=== PATIENT | female | born 1990 | race American Indian/Alaskan Native ===

== ENCOUNTER 2017-07-08 03:23 | Emergency (ER) | payer SELFPAY ==
[2017-07-08 04:09] VITALS: BP 103/54
--- NOTE | 2017-07-08 04:44 | XRay Report ---
FINAL REPORT EXAM: XR CHEST ROUTINE 2V HISTORY: SOB/DANISH TECHNIQUE: PA and lateral chest radiographs PRIORS: None. FINDINGS: No mediastinal shift. Cardiac silhouette is not enlarged. No pneumothorax, effusion, or focal pulmonary opacity. No acute skeletal finding. IMPRESSION: No focal pulmonary opacity.
[2017-07-08] MEDS ORDERED: DUONEB *Not for PRN Use IH ONE (05:07)
--- NOTE | 2017-07-08 05:12 | Emergency Department Report ---
ED Asthma HPI - General Chief Complaint: Adult Asthma Stated Complaint: DANISH/SOB Time Seen by Provider: 07/08/17 05:07 Source: patient Mode of arrival: Ambulatory Limitations: No Limitations - History of Present Illness Initial Comments: 27-year-old -[place] female with a past medical history of asthma comes in today complaining of shortness of breath and DANISH 1 week. Patient poor she' s been using her inhaler but ran out last night. Patient came by EMS and was given Solu-Medrol and albuterol treatment prior to arrival. Patient denies any fever chills no nausea no vomiting she denies any nasal congestion or sore throat Raynaud's admits to wheezing and coughing. Patient reports she has not had an asthma attack like this in a year. Patient has no primary care provider. Patient has allergy to red dye. MD Complaint: "asthma attack", wheezing -: week(s) (1) Severity: similar to prior Context: ran out of meds Associated Symptoms: other (cough) Treatments Prior to Arrival: inhaled bronchodilator, IV steroid - Related Data Current Asthma Therapy: inhaled bronchodilator Previous Rx's Medication Instructions Recorded Last Taken Type ALBUTEROL Inhaler [Proair] 2 puff IH QID PRN #1 inhalation 07/08/17 Unknown Rx ALBUTEROL NEB's [Proventil 0.083% 2.5 mg IH TID PRN #120 nebu 07/08/17 Unknown Rx NEBS] Prednisone [predniSONE 5 mg (6-Day 5 mg PO .TAPER #1 tab.ds.pk 07/08/17 Unknown Rx Pack, 21 Tabs)] Allergies Allergy/AdvReac Type Severity Reaction Status Date / Time red dye Allergy Unknown Verified 01/02/13 20:54 ED Review of Systems ROS: Stated complaint: DANISH/SOB Other details as noted in HPI Constitutional: denies: chills, fever Eyes: denies: eye pain, eye discharge, vision change ENT: denies: ear pain, throat pain Respiratory: cough, shortness of breath, SOB with exertion, wheezing Cardiovascular: denies: chest pain, palpitations Endocrine: no symptoms reported Gastrointestinal: denies: abdominal pain, nausea, diarrhea Genitourinary: denies: urgency, dysuria, discharge Musculoskeletal: denies: back pain, joint swelling, arthralgia Skin: denies: rash, lesions Neurological: denies: headache, weakness, paresthesias Psychiatric: denies: anxiety, depression Hematological/Lymphatic: denies: easy bleeding, easy bruising ED Past Medical Hx - Past Medical History Previous Medical History?: Yes Hx Seizures: Yes Hx Psychiatric Treatment: Yes (depression) Hx Asthma: Yes Additional medical history: HYPERTHYROID,PANIC ATTACK - Surgical History Past Surgical History?: Yes Additional Surgical History: Caesarean 2X - Social History Smoking Status: Never Smoker Substance Use Type: None - Medications Home Medications: Home Medications Medication Instructions Recorded Confirmed Last Taken Type ALBUTEROL Inhaler [Proair] 2 puff IH QID PRN #1 inhalation 07/08/17 Unknown Rx ALBUTEROL NEB's [Proventil 0.083% 2.5 mg IH TID PRN #120 nebu 07/08/17 Unknown Rx NEBS] Prednisone [predniSONE 5 mg (6-Day 5 mg PO .TAPER #1 tab.ds.pk 07/08/17 Unknown Rx Pack, 21 Tabs)] ED Physical Exam - General Limitations: No Limitations General appearance: alert, in no apparent distress - Head Head exam: Present: atraumatic, normocephalic - Eye Eye exam: Present: normal appearance - ENT ENT exam: Present: mucous membranes moist - Neck Neck exam: Present: normal inspection - Respiratory Respiratory exam: Present: wheezes, rhonchi - Cardiovascular Cardiovascular Exam: Present: regular rate, normal rhythm. Absent: systolic murmur, diastolic murmur, rubs, gallop - GI/Abdominal GI/Abdominal exam: Present: soft, normal bowel sounds - Extremities Exam Extremities exam: Present: normal inspection - Back Exam Back exam: Present: normal inspection - Neurological Exam Neurological exam: Present: alert, oriented X3 - Psychiatric Psychiatric exam: Present: normal affect, normal mood - Skin Skin exam: Present: warm, dry, intact, normal color. Absent: rash ED Course Vital Signs 07/08/17 03:57 Temperature 98.5 F Pulse Rate 91 H Respiratory 18 Rate Blood Pressure 103/54 O2 Sat by Pulse 95 Oximetry - Reevaluation(s) Reevaluation #1: 07/08/17 05:49 Patient reports she feels much better after having the DuoNeb. ED Medical Decision Making - Radiology Data Radiology results: report reviewed, image reviewed FINAL REPORT EXAM: XR CHEST ROUTINE 2V HISTORY: SOB/DANISH TECHNIQUE: PA and lateral chest radiographs PRIORS: None. FINDINGS: No mediastinal shift. Cardiac silhouette is not enlarged. No pneumothorax, effusion, or focal pulmonary opacity. No acute skeletal finding. IMPRESSION: No focal pulmonary opacity. Transcribed By: MB Dictated By: ADDIE MCKEON MD Electronically Authenticated By: ADDIE MCKEON MD Signed Date/Time: 07/08/17438 DD/ 8 TD/TT: 07/08/17438 - Medical Decision Making Patient has been evaluated by this provider fast track. Patient had Solu- Medrol and albuterol treatment prior to arrival by EMS. We will order patient a DuoNeb. Patient's had a chest x-ray which shows no pulmonary opacities. We would discharge patient home on albuterol inhaler as well as Medrol Dosepak of steroids. We will refer patient to primary care. Patient verbalized understanding Critical care attestation.: If time is entered above; I have spent that time in minutes in the direct care of this critically ill patient, excluding procedure time. ED Disposition Clinical Impression: Asthma attack Qualifiers: Asthma severity: unspecified severity Asthma persistence: unspecified Qualified Code(s): J45.901 - Unspecified asthma with (acute) exacerbation Disposition: DC-01 TO HOME OR SELFCARE Is pt being admited?: No Does the pt Need Aspirin: No Condition: Stable Additional Instructions: Please complete prednisone as prescribed. The use your inhaler as needed. Follow up with the primary care provider for further management of her asthma. Prescriptions: ALBUTEROL Inhaler [Proair] 2 puff IH QID PRN #1 inhalation PRN Reason: Shortness Of Breath ALBUTEROL NEB's [Proventil 0.083% NEBS] 2.5 mg IH TID PRN #120 nebu PRN Reason: Wheezing Prednisone [predniSONE 5 mg (6-Day Pack, 21 Tabs)] 5 mg PO .TAPER #1 tab.ds.pk Referrals: PRIMARY CARE, [Primary Care Provider] - 3-5 Days [facility] [Provider Group] - 3-5 Days Forms: Work/School Release Form(ED)
== END 2017-07-08 05:56 | disposition home or self-care (01) ==
LOC: ED 03:23
DX: J45.901 Unspecified asthma with (acute) exacerbation (principal)
CPT/HCPCS: 71046

== ENCOUNTER 2021-11-10 19:13 | Emergency (ER) | payer MEDICAID ==
[2021-11-10] MEDS ORDERED: IPRATROPIUM/ALBUTEROL SULFATE 3 ML AMPUL.NEB IH ONE ×2 (20:55→22:06)
[2021-11-11] MEDS ORDERED: SODIUM CHLORIDE 0.9% 1000 ML 1,000 ML IV ONE (00:32)
[2021-11-11] MEDS ORDERED: ALBUTEROL 2.5 MG/3 ML NEBU IH ONE (00:32)
[2021-11-11] MEDS ORDERED: MAGNESIUM SULFATE 2 GM/50 ML BAG IV ONE (00:32)
[2021-11-11] MEDS ORDERED: methylPREDNISolone Sod Succinate 125 MG/2 ML INJ IV ONE (00:32)
--- NOTE | 2021-11-11 00:34 | Emergency Department Report ---
ED Asthma HPI - General Stated Complaint: ASTHMA,VOMITTING Time Seen by Provider: 11/11/21 00:30 Source: patient - History of Present Illness MD Complaint: "asthma attack", wheezing -: Gradual Asthma History: history of prior ED visit Severity: mild Context: recent URI Associated Symptoms: productive cough - Related Data Current Asthma Therapy: inhaled bronchodilator Previous Rx's Medication Instructions Recorded Last Taken Type ALBUTEROL NEB's [Proventil 0.083% 2.5 mg IH TID PRN #120 nebu 07/08/17 Unknown Rx NEBS] Albuterol Mdi (or & Nicu Only) 2 puff IH QID PRN #1 inhalation 07/08/17 Unknown Rx [Proair] Prednisone [predniSONE 5 mg (6-Day 5 mg PO .TAPER #1 tab.ds.pk 07/08/17 Unknown Rx Pack, 21 Tabs)] ALBUTEROL NEB's [Proventil 0.083% 2.5 mg IH TID PRN #30 neb 11/11/21 Unknown Rx NEBS] Albuterol Mdi (or & Nicu Only) 2 puff IH QID PRN #1 inhalation 11/11/21 Unknown Rx [ProAir HFA Inhaler] Montelukast [Singulair] 10 mg PO QPM #14 tablet 11/11/21 Unknown Rx predniSONE [Deltasone] 50 mg PO QDAY #5 tab 11/11/21 Unknown Rx Allergies Allergy/AdvReac Type Severity Reaction Status Date / Time red dye Allergy Unknown Verified 01/02/13 20:54 ED Review of Systems ROS: Stated complaint: ASTHMA,VOMITTING Other details as noted in HPI Comment: All other systems reviewed and negative ED Past Medical Hx - Past Medical History Hx Seizures: Yes Hx Psychiatric Treatment: Yes (depression) Hx Asthma: Yes Additional medical history: HYPERTHYROID,PANIC ATTACK - Surgical History Additional Surgical History: Caesarean 2X - Social History Smoking Status: Never Smoker Substance Use Type: None - Medications Home Medications: Home Medications Medication Instructions Recorded Confirmed Last Taken Type ALBUTEROL NEB's [Proventil 0.083% 2.5 mg IH TID PRN #120 nebu 07/08/17 Unknown Rx NEBS] Albuterol Mdi (or & Nicu Only) 2 puff IH QID PRN #1 inhalation 07/08/17 Unknown Rx [Proair] Prednisone [predniSONE 5 mg (6-Day 5 mg PO .TAPER #1 tab.ds.pk 07/08/17 Unknown Rx Pack, 21 Tabs)] ALBUTEROL NEB's [Proventil 0.083% 2.5 mg IH TID PRN #30 neb 11/11/21 Unknown Rx NEBS] Albuterol Mdi (or & Nicu Only) 2 puff IH QID PRN #1 inhalation 11/11/21 Unknown Rx [ProAir HFA Inhaler] Montelukast [Singulair] 10 mg PO QPM #14 tablet 11/11/21 Unknown Rx predniSONE [Deltasone] 50 mg PO QDAY #5 tab 11/11/21 Unknown Rx ED Physical Exam - General General appearance: alert, in no apparent distress - Head Head exam: Present: atraumatic, normocephalic - Eye Eye exam: Present: normal appearance, PERRL, EOMI - ENT ENT exam: Present: normal exam, normal orophraynx, mucous membranes moist, other (Nasal congestion postnasal drip) - Neck Neck exam: Present: normal inspection - Respiratory Respiratory exam: Present: normal lung sounds bilaterally, wheezes, rhonchi, decreased breath sounds. Absent: respiratory distress - Cardiovascular Cardiovascular Exam: Present: regular rate, normal rhythm. Absent: systolic murmur, diastolic murmur, rubs, gallop - GI/Abdominal GI/Abdominal exam: Present: soft, normal bowel sounds. Absent: tenderness, rebound, hyperactive bowel sounds - Extremities Exam Extremities exam: Present: normal inspection, normal capillary refill - Back Exam Back exam: Present: normal inspection. Absent: CVA tenderness (R), CVA tenderness (L) - Neurological Exam Neurological exam: Present: alert, oriented X3, CN II-XII intact, normal gait - Psychiatric Psychiatric exam: Present: normal affect, normal mood. Absent: anxious, flat affect, suicidal ideation - Skin Skin exam: Present: warm, dry, intact, normal color. Absent: rash, cyanosis, diaphoretic ED Course Vital Signs 11/10/21 11/11/21 11/11/21 21:00 00:46 00:50 Temperature 100.7 F H Pulse Rate Pulse Rate [ 100 H Anterior Bilateral Bases ] Pulse Rate [ 102 H Anterior Bilateral Throughout] Pulse Rate [ 103 H Sitting] Pulse Rate [ 120 H Standing] Respiratory 18 Rate Respiratory 20 Rate [Anterior Bilateral Bases ] Respiratory 18 Rate [Anterior Bilateral Throughout] Blood Pressure [Left] Blood Pressure 121/61 [Sitting] Blood Pressure 98/65 [Standing] O2 Sat by Pulse Oximetry 11/11/21 05:19 Temperature Pulse Rate 94 H Pulse Rate [ Anterior Bilateral Bases ] Pulse Rate [ Anterior Bilateral Throughout] Pulse Rate [ Sitting] Pulse Rate [ Standing] Respiratory 12 Rate Respiratory Rate [Anterior Bilateral Bases ] Respiratory Rate [Anterior Bilateral Throughout] Blood Pressure 126/67 [Left] Blood Pressure [Sitting] Blood Pressure [Standing] O2 Sat by Pulse 100 Oximetry ED Medical Decision Making - Lab Data Result diagrams: 11/11/21 00:39 11/11/21 00:39 - Radiology Data Radiology results: report reviewed [facility] [address] [place] [address] XRay Report Signed Patient: PEDRO RASHID MR #: [id number] : 1990 Acct:[id number] Age/Sex: 31 / F ADM Date: 11/10/21 Loc: ED Attending Dr: Ordering Physician: NEREIDA POSADAS Date of Service: 11/11/21 Procedure(s): XR chest routine 2V Accession Number(s): [id number] cc: NEREIDA POSADAS Fluoro Time In Minutes: CHEST 2 VIEWS INDICATION / CLINICAL INFORMATION: Asthma STUDY TIME: 0200 COMPARISON: None available. FINDINGS: SUPPORT DEVICES: None. HEART / MEDIASTINUM: No significant abnormality. LUNGS / PLEURA: No significant acute pulmonary or pleural abnormality. No pneumothorax. ADDITIONAL FINDINGS: No significant additional findings. Signer Name: Jj Cr MD Signed: 11/11/2021 2:53 AM Workstation Name: [id number] Transcribed By: GJ Dictated By: Jj Cr MD Electronically Authenticated By: Jj Cr MD Signed Date/Time: 11/11/21252 DD/ 2 TD/TT: - Medical Decision Making No altered mental status, saddle respirations, belly breathing or other signs of impending ventilatory failure. No intubations or recent admissions to the hospital for asthma. Unlikely pneumonia, CHF, COPD, GERD Workup Review include a chest x-ray which was normal she also received steroids and albuterol Therapies: Prednisone 50 mg PO. Albuterol nebulizer Reassessment: Patient improved with albuterol and ipratropium in less than 3 hours. Disposition: Discharge home with return precautions. Advised to follow up with primary care physician within next 24-48 hours. Aside from this acute exacerbation patient has been well controlled on baseline home regimen. Rx short steroid course, albuterol, Singulair, Flovent This patient presents with acute cough, most consistent with bronchitis. Differential diagnosis includes asthma exacerbation, bronchitis, COVID-19. Presentation not consistent with acute bacterial pneumonia, influenza, asthma, transient airway hyperresponsiveness. Presentation not consistent with chronic causes of cough (including GERD, asthma, postnasal discharge, medication side effect, CHF, lung cancer or mass). Plan: Normal CXR, supportive care, reassess Critical care attestation.: If time is entered above; I have spent that time in minutes in the direct care of this critically ill patient, excluding procedure time. ED Disposition Clinical Impression: Asthma, Viral syndrome Disposition: HOME / SELF CARE / HOMELESS Is pt being admited?: No Does the pt Need Aspirin: No Condition: Undetermined Instructions: Asthma (ED), Asthma, Adult, Viral Respiratory Infection, [id number], Peak Flow Meter, Asthma Attack, How to Use a Dry Powder Inhaler, E asy-to-Read, Cough, Adult Prescriptions: predniSONE [Deltasone] 50 mg PO QDAY #5 tab Albuterol Mdi (or & Nicu Only) [ProAir HFA Inhaler] 2 puff IH QID PRN #1 inhalation PRN Reason: Shortness Of Breath ALBUTEROL NEB's [Proventil 0.083% NEBS] 2.5 mg IH TID PRN #30 neb PRN Reason: Wheezing Montelukast [Singulair] 10 mg PO QPM #14 tablet Referrals: RADHA BRAVO MD [Primary Care Provider] - 3-5 Days
[2021-11-11 01:15] LABS: Alanine Aminotransferase 11 units/L (7-56); Albumin 4.5 g/dL (3.9-5); BUN/Creatinine Ratio 10; Blood Urea Nitrogen 11 mg/dL (7-17); Hemolysis Index 14
[2021-11-11 01:16] LABS: Basophils % (Auto) 0.3 % (0.0-1.8); Eosinophils % (Auto) 0.1 % (0.0-4.3); Hematocrit 38.9 % (30.3-42.9); Hemoglobin 12.3 gm/dl (10.1-14.3); Lymphocytes # (Auto) 0.7 K/mm3 (1.2-5.4); Mean Corpuscular HGB Conc 32 % (30-34); Mean Corpuscular Volume 89 fl (79-97); Monocytes # (Auto) 0.6 K/mm3 (0.0-0.8); Monocytes % (Auto) 5.2 % (0.0-7.3); Platelet Count 275 K/mm3 (140-440); Red Blood Count 4.38 M/mm3 (3.65-5.03)
--- NOTE | 2021-11-11 02:58 | XRay Report ---
CHEST 2 VIEWS INDICATION / CLINICAL INFORMATION: Asthma STUDY TIME: 199 COMPARISON: None available. FINDINGS: SUPPORT DEVICES: None. HEART / MEDIASTINUM: No significant abnormality. LUNGS / PLEURA: No significant acute pulmonary or pleural abnormality. No pneumothorax. ADDITIONAL FINDINGS: No significant additional findings. Signer Name: Jj Cr MD Signed: 11/11/2021 2:53 AM Workstation Name: [id number]
[2021-11-11 05:20] VITALS: BP 126/67
== END 2021-11-11 07:27 | disposition home or self-care (01) ==
LOC: ED 19:13
DX: J45.909 Unspecified asthma, uncomplicated (principal); B34.9 Viral infection, unspecified; Z91.041 Radiographic dye allergy status; F32.A Depression, unspecified
CPT/HCPCS: 36415; 71046; 80053; 84703; 85025; 94640; 96374; 96375; 99284; J2930; J3475; J7030; 94644